=== PATIENT | female | born 1995 | race Caucasian/White ===

== ENCOUNTER 2019-03-17 09:47 | Day surgery (SDC) | payer OTHER, BC ==
[2019-03-17] MEDS ORDERED: FENTAnyl 50 MCG/ML VIAL (12:33)
[2019-03-17] MEDS ORDERED: MIDAZOLAM 1 MG/ML 2 ML INJ (12:33)
[2019-03-17] MEDS ORDERED: CEFAZOLIN 1 GM INJ (12:33)
[2019-03-17] MEDS ORDERED: PROPOFOL 20 ML (12:33)
[2019-03-17] MEDS ORDERED: ROPIVACAINE 0.5 % 30 ML VIAL (12:34)
[2019-03-17] MEDS: BUPIVACAINE 0.5% (SDV) 30 ML INJ (13:13)
[2019-03-17] MEDS ORDERED: ONDANSETRON 4 MG INJ (13:15)
[2019-03-17] MEDS ORDERED: METOCLOPRAMIDE 10 MG INJ (13:15)
[2019-03-17] MEDS: POLYMYXIN/BACITRACIN 1L IRRIG (13:15)
[2019-03-17] MEDS ORDERED: KETOROLAC 30 MG INJ (13:15)
[2019-03-17] MEDS ORDERED: DEXAMETHASONE 4 MG/ML 5 ML INJ (13:15)
[2019-03-17] MEDS: LACTATED RINGER'S 1,000 ML IV (13:48)
[2019-03-17] MEDS ORDERED: OXYCODONE/ACETAMINOPHEN (5/325) TAB PO ×2 (14:00)
[2019-03-17] MEDS ORDERED: METOCLOPRAMIDE 10 MG INJ IV ×2 (14:00)
[2019-03-17] MEDS ORDERED: EPHEDrine SULFATE 50 MG/5 ML SYG IV (14:00)
[2019-03-17] MEDS ORDERED: HYDROmorphONE 1 MG/5 ML IV SYRINGE IV ×4 (14:00)
[2019-03-17] MEDS ORDERED: DIPHENHYDRAMINE 50 MG INJ IV (14:00)
[2019-03-17] MEDS ORDERED: LABETALOL HCL 20MG INJ IV (14:00)
[2019-03-17] MEDS ORDERED: FENTAnyl 50 MCG/ML VIAL IV ×4 (14:00)
[2019-03-17] MEDS ORDERED: ONDANSETRON 4 MG INJ IV ×2 (14:00)
[2019-03-17] MEDS ORDERED: KETOROLAC 15 MG INJ IV (14:00)
[2019-03-17] MEDS ORDERED: MEPERIDINE 25 MG INJ (14:01)
[2019-03-17] MEDS: MEPERIDINE 25 MG INJ IV (14:08)
== END 2019-03-17 15:10 | disposition home or self-care (01) ==
LOC: SDS 09:47
DX: S66.222D Laceration of extensor muscle, fascia and tendon of left thumb at wrist and hand level, subsequent encounter (principal); W26.0XXD Contact with knife, subsequent encounter; J45.909 Unspecified asthma, uncomplicated
CPT/HCPCS: 26445; 84703